=== PATIENT | female | born 1990 | race Caucasian/White ===

== ENCOUNTER 2022-08-04 02:29 | Emergency (ER) | payer BC, MEDICAID, SELFPAY ==
[2022-08-04] MEDS ORDERED: Sulfameth/Trimethoprim DS 800-160mg TAB ONE (03:04)
[2022-08-04] MEDS ORDERED: predniSONE 20 MG TAB ONE (03:04)
== END 2022-08-04 03:11 | disposition home or self-care (01) ==
LOC: MADERS 02:29
DX: L25.9 Unspecified contact dermatitis, unspecified cause (principal); L03.811 Cellulitis of head [any part, except face]; K21.9 Gastro-esophageal reflux disease without esophagitis
CPT/HCPCS: 99282; J7512

== ENCOUNTER 2022-09-20 20:18 | Emergency (ER) | payer MEDICAID, SELFPAY ==
[2022-09-20] MEDS ORDERED: Dexamethasone 4 MG TAB ONE (20:54)
== END 2022-09-20 21:02 | disposition home or self-care (01) ==
LOC: MADERS 20:18
DX: L25.5 Unspecified contact dermatitis due to plants, except food (principal); K21.9 Gastro-esophageal reflux disease without esophagitis
CPT/HCPCS: 99282; J8540

== ENCOUNTER 2022-11-14 11:05 | Emergency (ER) | payer SELFPAY ==
[2022-11-14 14:10] LABS: Bilirubin Negative (Negative); Blood, Urine Large (Negative); Clarity Cloudy (Clear); Glucose, Urine (Dipstick) Negative (Negative); Ketone, Urine Negative (Negative); Leukocyte Small (Negative); Nitrite Negative (Negative); Protein, Urine (Dipstick) 100 mg/dL (Neg-Trace); Specific Gravity, Urine 1.015 (1.005-1.030); pH, Urine 6.5 (5.0-9.0)
[2022-11-14 14:17] LABS: Bacteria/HPF 4+ HPF (None Seen); RBC/HPF Greater than 50 HPF (0-3); WBC/HPF Greater Than 50 HPF (0-3)
[2022-11-14] MEDS ORDERED: Sulfameth/Trimethoprim DS 800-160mg TAB ONE (15:03)
== END 2022-11-14 14:56 | disposition home or self-care (01) ==
LOC: MADERS 11:05
DX: N39.0 Urinary tract infection, site not specified (principal); K21.9 Gastro-esophageal reflux disease without esophagitis
CPT/HCPCS: 71045; 81003; 81015; 87077; 87086; 87186; 87804

== ENCOUNTER 2022-12-02 01:20 | Emergency (ER) | payer SELFPAY ==
[2022-12-02] MEDS ORDERED: Naloxone HCl 0.4 mg/ml Vial ONE (02:04)
[2022-12-02 02:06] LABS: #Basophils 0.1 thou/uL (0.0-0.2); #Eosinphils 0.3 thou/uL (0.0-0.7); #Lymphocytes 1.9 thou/uL (1.20-3.40); #Monocytes 0.4 thou/uL (0.11-0.59); #Neutrophils 2.5 thou/uL (1.40-6.50); %Basophils 1.7 % (0.0-1.0); %Eosinophils 5.2 % (0.0-10.0); %Lymphocytes 36.5 % (21.0-51.0); %Monocytes 7.6 % (0.0-10.0); Hemoglobin 12.3 g/dL (12.0-16.0); Mean Corpuscular HGB CONC 34.3 g/dL (32.0-36.0); Mean Corpuscular Hemoglobin 29.5 pg (27.0-31.0); Mean Platelet Volume 6.5 fL (7.4-10.4); Platelet Count 302 10x3/uL (130-400); RBC Distribution Width 12.4 % (11.5-14.5); Red Blood Cell (RBC) Count 4.17 mill/uL (4.20-5.40); White Blood Cell (WBC) Count 5.1 10x3/uL (4.8-10.8)
[2022-12-02 02:22] LABS: ALT (SGPT) 77 U/L (8-55); AST (SGOT) 54 U/L (5-34); Albumin 3.7 g/dL (3.5-5.0); Alkaline Phosphatase 62 U/L (40-110); Anion Gap 15 mmol/L (10-20); BUN (Urea Nitrogen) 17 mg/dL (7.0-18.7); Bilirubin, Total 0.4 mg/dL (0.2-1.2); Calc. Creatinine Clearance 0 mL/min (70-130); Calcium 9.1 mg/dL (7.8-10.44); Carbon Dioxide 22 mmol/L (22-29); Chloride 105 mmol/L (98-107); Estimated GFR 88; Globulin 2.9 g/dL (2.4-3.5); Glucose 90 mg/dL (70-105); Lipase 76 U/L (8-78); Magnesium 2.1 mg/dL (1.6-2.6); Protein, Total 6.6 g/dL (6.0-8.3); Sodium 138 mmol/L (136-145)
[2022-12-02 02:23] LABS: Acetaminophen Less than 10.0 mcg/mL (10.0-30.0); Alcohol Less than 10 mg/dL (Less than 10); Salicylate Less than 8.0 mg/dL (15.0-30.0)
[2022-12-02 02:29] LABS: Base Excess-Venous 0.6 mmol/L (-2.0 to 3.0); Bicarbonate (HCO3v) 25.8 mmol/L (22.0-28.0); Calcium, Ionized 1.19 mmol/L (1.15-1.33); Chloride 106 mmol/L (98-107); Hemoglobin - Calc 12.7 g/dL (12.0-16.0); Potassium 3.6 mmol/L (3.5-5.1); Sodium 142 mmol/L (138-145); T. Carbon Dioxide 27.1 mmol/L (22.0-28.0); vO2 Saturation-calc 99.8 % (60.0-85.0)
[2022-12-02 02:43] LABS: Amphetamine Detected (NotDetected); Barbiturates Screen Not Detected (NotDetected); Benzodiazepine Screen Detected (NotDetected); Cocaine Metabolite Screen Not Detected (NotDetected); Medtox Control Line Valid? VALID (VALID); Methadone Not Detected (NotDetected); Methamphetamine Detected (NotDetected); Opiate Screen Not Detected (NotDetected); Oxycodone Screen Not Detected (NotDetected); Phencyclidine (PCP) Not Detected (NotDetected); THC/Cannabinoid Screen Not Detected (NotDetected); Tricyclic Screen Not Detected (NotDetected)
[2022-12-02 03:33] LABS: BHCG - Serum Negative (NEGATIVE); Pregs Control Background? CLEAR/WHITE (CLR/WHITE); Pregs Control Bar Appear? YES (CONTROL BAR)
[2022-12-02] MEDS ORDERED: Sodium Chloride 0.9% 1,000 ML BAG ONE (07:05)
== END 2022-12-02 08:38 | disposition home or self-care (01) ==
LOC: MADERS 01:20
DX: F13.20 Sedative, hypnotic or anxiolytic dependence, uncomplicated (principal); F15.10 Other stimulant abuse, uncomplicated; F19.10 Other psychoactive substance abuse, uncomplicated; T65.91XA Toxic effect of unspecified substance, accidental (unintentional), initial encounter; T68.XXXA Hypothermia, initial encounter; R41.82 Altered mental status, unspecified
CPT/HCPCS: 51702; 80053; 80306; 80307; 82330; 82803; 83690; 83735; 83880; 84484; 84703; 85025; 93005; J2310; J7050

== ENCOUNTER 2023-09-15 13:29 | Emergency (ER) | payer SELFPAY | END 2023-09-15 15:00 | disposition home or self-care (01) | LOC: MADERS 13:29 | DX: L23.7 Allergic contact dermatitis due to plants, except food (principal); R22.32 Localized swelling, mass and lump, left upper limb | CPT/HCPCS: 99282 ==

== ENCOUNTER 2024-06-01 17:02 | Emergency (ER) | payer SELFPAY ==
[2024-06-01] MEDS ORDERED: Dexamethasone 10 MG/ML VIAL ONE (17:44)
[2024-06-01] MEDS ORDERED: Clindamycin 150 MG CAP ONE (17:44)
== END 2024-06-01 18:17 | disposition home or self-care (01) ==
LOC: MADERS 17:02
DX: L23.7 Allergic contact dermatitis due to plants, except food (principal)
CPT/HCPCS: 96372; 99282; J1100